=== PATIENT | male | born 2000 | race African-American/Black ===

== ENCOUNTER 2020-01-01 23:41 | Emergency (ER) | payer BC, OTHER ==
[~2020-01-01] VITALS: Ht 170.1 cm; Wt 60.3 kg
[2020-01-02 00:07] LABS: CLARITY,URINE SLIGHTLY CLOUDY; COLOR,URINE YELLOW; GLUCOSE, URINE (UA) NEGATIVE (NEGATIVE); KETONES,URINE TRACE (NEGATIVE); NITRITE,URINE NEGATIVE (NEGATIVE); PH,URINE 6.5 (5-9); PROTEIN,URINE NEGATIVE (NEGATIVE)
--- NOTE | 2020-01-02 00:07 | ED GU-Male ---
General Chief Complaint: - Urinary Stated Complaint: BLOOD IN URINE Source: patient Exam Limitations: no limitations History of Present Illness Date Seen by Provider: Jan 02, 2020 Time Seen by Provider: 00:03 Initial Comments Patient complains of 3 days of discomfort at the end of his penis with urination has been some blood or dark discharge noted no lex burning with urination no fever no back pain no scrotal pain abnormal lumps bumps swelling in the groin area Timing/Duration: getting worse Severity/Quality: mild Location: urethral Radiation: none Activities at Onset: none Prior Genitourinary Problems: none Sexual [place] History: other (female only) Allergies and Home Medications Allergies Coded Allergies: No Known Drug Allergies (Unverified , 01/01/20) Patient Home Medication List Home Medication List Reviewed: Yes Review of Systems Review of Systems Constitutional: no symptoms reported EENTM: no symptoms reported Respiratory: no symptoms reported Cardiovascular: no symptoms reported Gastrointestinal: no symptoms reported Genitourinary: see HPI Musculoskeletal: no symptoms reported Skin: no symptoms reported Psychiatric/Neurological: No Symptoms Reported Endocrine: No Symptoms Reported Past Kpiehzw-Dtbgih-Mqguuw Hx Past Med/Social Hx: Reviewed Nursing Past Med/Soc Hx Patient Social History Recent Foreign Travel: No Contact w/Someone Who Travel: No Physical Exam Vital Signs Vital Signs - First Documented 01/01/20 23:49 Temp 37.0 Pulse 61 Resp 18 B/P (MAP) 126/73 (90) Pulse Ox 97 O2 Delivery Room Air Capillary Refill : Height, Weight, BMI Height: '" Weight: lbs. oz. kg; BMI Method: General Appearance: WD/WN, no apparent distress HEENT: PERRL/EOMI, normal ENT inspection Neck: full range of motion, supple, normal inspection Cardiovascular: regular rate, rhythm, no edema, no murmur Respiratory: chest non-tender, lungs clear, normal breath sounds, no respiratory distress Gastrointestinal: normal bowel sounds, non tender, soft, no organomegaly Male: normal genitalia; No inguinal tenderness, No testicular tenderness; other (clear mucoid discharge present) Back: normal inspection, no CVA tenderness, no vertebral tenderness Extremities: normal range of motion, non-tender, normal inspection Neurologic/Psychiatric: clinical director II-XII nml as tested, no motor/sensory deficits, alert, normal mood/affect, oriented x 3 Skin: normal color, warm/dry Progress/Results/Core Measures Suspected Sepsis SIRS Temperature: Pulse: Respiratory Rate: Blood Pressure / Mean: Results/Orders Lab Results Laboratory Tests Test 01/02/20 00:02 Range/Units Urine Color YELLOW Urine Clarity SLIGHTLY CLOUDY Urine pH 6.5 5-9 Urine Specific [place] >=1.030 1.016-1.022 Urine Protein NEGATIVE NEGATIVE Urine Glucose (UA) NEGATIVE NEGATIVE Urine Ketones TRACE H NEGATIVE Urine Nitrite NEGATIVE NEGATIVE Urine Bilirubin NEGATIVE NEGATIVE Urine Urobilinogen 1.0 < = 1.0 MG/DL Urine Leukocyte Esterase NEGATIVE NEGATIVE Urine RBC (Auto) NEGATIVE NEGATIVE Urine RBC NONE /HPF Urine WBC >100 H /HPF Urine Crystals NONE /LPF Urine Bacteria NEGATIVE /HPF Urine Casts NONE /LPF Urine Mucus LARGE H /LPF Urine Culture Indicated YES My Orders Orders - LEX FULLER DO Ua Culture If Indicated (01/02/20 00:02) Chlamydia Trachomatis Urine (01/02/20 00:02) Neis Ezequiel Dna Urine Test (01/02/20 00:02) Urine Culture (01/02/20 00:02) Vital Signs/I&O 01/01/20 23:49 Temp 37.0 Pulse 61 Resp 18 B/P (MAP) 126/73 (90) Pulse Ox 97 O2 Delivery Room Air Capillary Refill : Progress Note : Progress Note This 19-year-old male with urinary symptoms for several days without fever or lex dysuria and mucoid discharge is sexually active. Differential being UTI versus a nonspecific urethritis versus STD there is no hernias no scrotal tenderness no lymph nodes plan urinalysis, GC screening empiric antibiotics contact follow-up Departure Communication (Admissions) Patient has 100 white cells no bacteria on the urine given the mucoid discharge most likely has STD we'll treat him with doxycycline and Rocephin counseled about sexual contacts discharge home Impression Primary Impression: Urethritis Disposition: 01 HOME, SELF-CARE Condition: Stable Departure-Patient Inst. Referrals: [facility] [place] NO,LOCAL PHYSICIAN (PCP) Primary Care Physician Patient Instructions: Urinary Tract Infection, Adult (DC), Urethritis LEX FULLER DO Jan 02, 2020 00:07
[2020-01-02 00:08] LABS: BACTERIA,URINE NEGATIVE /HPF; BILIRUBIN,URINE NEGATIVE (NEGATIVE); LEUKOCYTE ESTERASE ,URINE NEGATIVE (NEGATIVE); WBC,URINE >100 /HPF
[2020-01-02] MEDS ORDERED: DOXY100T2 PO (00:37)
[2020-01-02] MEDS ORDERED: LIDOCAINE 1% INJ 20 ML 20 ML VIAL INJ ONE (00:45)
[2020-01-02] MEDS ORDERED: DOXYCYCLINE 100 MG (VIBRAMYCIN) TABLET PO ONE (00:45)
[2020-01-02] MEDS ORDERED: cefTRIAXone 500 MG/1.43 ML vial (IM ONLY) IM ONE (00:45)
[2020-01-02 00:46] VITALS: BP 126/73
== END 2020-01-02 00:46 | disposition home or self-care (01) ==
LOC: ER FS 23:46
DX: N34.2 Other urethritis (principal)
CPT/HCPCS: 36415; 81000; 87088; 87491; 87591; 96372; 99284